=== PATIENT | female | born 2000 | race Caucasian/White ===

== ENCOUNTER 2021-12-26 17:38 | Emergency (ER) | payer MEDICAID ==
[~2021-12-26] VITALS: Ht 182.9 cm; Wt 95.5 kg
[2021-12-26 18:00] VITALS: TEMP 97.4
[2021-12-26 19:00] VITALS: BP 118/72; PULSE 72
== END 2021-12-26 19:00 | disposition home or self-care (01) ==
LOC: COL.ER 17:38
DX: M54.50 Low back pain, unspecified (principal); G89.29 Other chronic pain; Z87.39 Personal history of other diseases of the musculoskeletal system and connective tissue; Z28.310 Unvaccinated for COVID-19
CPT/HCPCS: J1885

== ENCOUNTER 2022-05-15 17:54 | Emergency (ER) | payer MEDICAID ==
[~2022-05-15] VITALS: Ht 182.9 cm; Wt 97.7 kg
[~2022-05-15 17:54] MED LIST: FLEXERIL 1010 MG/TAB PO; NORCO 325 MG-51 TAB PO; PREDNISONE20 MG PO
[2022-05-15 17:57] VITALS: TEMP 98.3
[2022-05-15 18:30] LABS: BASO % 0.5 % (0.0-2.0); EOS # 0.1 K/mm3 (0.0-0.7); GRAN # 4.1 K/mm3 (1.4-6.5); GRAN % 67.5 % (42.2-75.2); HEMATOCRIT 37.3 % (37.0-47.0); LYMPH # 1.5 K/mm3 (1.2-3.4); LYMPH % 25.5 % (20.0-51.0); MEAN CELL VOLUME 89 fl (80.0-100.0); MEAN CORPUSCULAR HEMOGLOBIN 31 pg (27-31); MEAN CORPUSCULAR HGB CONC 35 g/dl (33.0-37.0); MEAN PLATELET VOLUME 8.5 fl (7.4-10.4); MONO # 0.3 K/mm3 (0.1-0.6); MONO % 5.3 % (1.7-9.3); PLATELET COUNT 226 K/mm3 (130-400); RED BLOOD COUNT 4.19 M/mm3 (4.10-5.30)
[2022-05-15 18:51] LABS: BILIRUBIN,TOTAL 0.3 mg/dL (0.2-1.2); C-REACTIVE PROTEIN 0.02 mg/dL (0.00-0.50); CALCIUM 9.2 mg/dL (8.4-10.2); CREATININE, serum 0.89 mg/dL (0.57-1.11); POTASSIUM 3.7 mmol/L (3.5-4.5); TOTAL PROTEIN 7.4 gm/dL (6.2-8.1)
[2022-05-15 19:38] VITALS: BP 100/67; PULSE 92
== END 2022-05-15 19:39 | disposition home or self-care (01) ==
LOC: COL.ER 17:54
PROVIDERS: Nurse Practitioner
DX: R10.13 Epigastric pain (principal); Z87.19 Personal history of other diseases of the digestive system; Z90.49 Acquired absence of other specified parts of digestive tract; Z28.310 Unvaccinated for COVID-19
CPT/HCPCS: J1885; J7030